=== PATIENT | female | born 1955 | race Caucasian/White ===

== ENCOUNTER → 2017-03-05 | Outpatient (CLI) | payer OTHER ==
--- NOTE | 2017-03-05 09:19 | DI ---
[facility], 03/05/2017 8:14 AM: Clinical History: Deviated septum. Previous Exam: None at this facility. 3 routine upright views are submitted. There is no acute soft tissue swelling or evidence of a nasal fracture. On the lemus projection, the bony septum is midline. No periorbital emphysema is present. There is mucosal thickening of both maxillary sinuses. Reading: No nasal fracture is identified. On the lemus projection, the bony septum is midline.
== END ==
LOC: MOB RAD 08:18
DX: J34.2 Deviated nasal septum (principal); W18.09XA Striking against other object with subsequent fall, initial encounter; Z72.0 Tobacco use
CPT/HCPCS: 70160